=== PATIENT | male | born 1960 | race African-American/Black ===

== ENCOUNTER 2016-11-07 05:38 | Inpatient (IN) | payer OTHER ==
[~2016-11-07] VITALS: Ht 177.8 cm; Wt 71.4 kg
--- NOTE | ~2016-11-07 | WND ---
ADMIT: 11/07/2016 RM/LOC: 405 [facility] MR#: [id number] [address] [place], [place] [address] [place] [address] [place] [address] Wound Care Clinic SEX: M AGE: 56 : 1960 DATE OF VISIT: 11/09/2016 TIME IN: 1425 hours. TIME OUT: 1510 hours. REASON FOR VISIT: Wound VAC dressing change to the left foot. HISTORY OF PRESENT ILLNESS: This is a 56-year-old gentleman, who usually receives care in [place]. He is at the [facility] getting long-term antibiotics for recent left foot osteomyelitis. He started developing vomiting and syncope on 11/07/2016. He has on numerous significant diseases that includes diabetes mellitus, type 2, insulin dependent; hypertension; small CVA; chronic renal failure, on dialysis; osteomyelitis of the left foot with IV antibiotics. He was admitted to [facility] for further evaluation and cares. According to past records, his osteomyelitis of his left foot was polymicrobial growing out gram-negative rods as well as MRSA. He also had positive blood cultures. PAST MEDICAL HISTORY: Type 2 diabetes, on insulin; end-stage renal disease secondary to diabetes needing renal dialysis; hypertension; history of cholecystectomy; osteomyelitis of the left foot; history of stroke with small residual right upper extremity paresthesia; stroke in 2013. FAMILY HISTORY: Significant for father with diabetic issues as well as mother with diabetes. He lives in [place] with his mother; however, is currently residing at [facility] with the PA system, originally from [place]. ALLERGIES: No known medication allergies. CURRENT MEDICATIONS: 1. Lipitor. 2. PhosLo. 3. Plavix. 4. Xalatan. 5. Levemir. 6. NovoLog. 7. Heparin drip. 8. Nitroglycerin drip. 9. Sodium chloride. 10.Zosyn. P.r.n. medications include: 1. Glutose. 2. Maalox. 3. Surfak. 4. Tylenol. 5. Tylenol suppository. 6. Nitrostat. ADMIT: 11/07/2016 RM/LOC: 405 [facility] MR#: [id number] [address] [address] PHIL [address] [place] [address] Wound Care Clinic SEX: M AGE: 56 : 1960 7. Eucerin. 8. Adrenalin. 9. Benadryl. 10.D50. 11.Heparin. 12.Solu-Cortef. 13.Zofran. REVIEW OF SYSTEMS: He is examined in his hospital bed where he is on a pressure-relief mattress. He just completed hemodialysis. He is awake and alert; however, he does doze off at times. He denies any recent fever or chills. He does have some nausea. He denies any current cough, cold, or chest pain. No abdominal discomfort. Appetite is fair. He does have a throbbing sensation in his foot. He states it is aching. PHYSICAL EXAMINATION: VITAL SIGNS: Temperature 98.8, pulse 89, respirations 18, blood pressure 151/59, O2 sats on oxygen is 92%. EXTREMITIES: Focused exam to left lower extremity shows foot circumference is 21.5 cm, ankle is 22 cm, and calf 20 cm, malleolus is 25.5 cm. He has a superficial area on the dorsal surface of his foot that measures 6.5 cm x 4.8 cm. It appears to be healing. There is a pink base scant serous drainage noted. Posterior tibialis is 1+, dorsalis pedis is 2+. On the lateral left foot wrapping around to the dorsal surface, total ulceration measures 13.8 cm x 8 cm with a depth of 2.7 cm. From 7-2 o'clock, it undermines for 1.4 cm. There is some necrotic tissue noticed on the edges of the undermined tissue. There is bone exposed that is slightly dark in appearance, approximately 2 x 5 cm. However, there are other areas along the side of his foot that also shows exposed bone. On the plantar surface of his foot, there is a wound that measures 1.2 cm x 1.3 with a depth of 0.9 cm. It undermines from 10-3 o'clock for 1.6 cm. The plantar wound base is more pink. The lateral wound base is a mixture of necrotic tissue with pink tissue and bone exposure. A moderate amount of serosanguineous drainage in the wound VAC canister. Wound edges are macerated. ASSESSMENT: Left foot full-thickness bone level wound, status post surgical debridement due to osteomyelitis and amputation of 5th digit. TREATMENT PLAN: The old VAC dressing was removed assuring that all the wound ADMIT: 11/07/2016 RM/LOC: 405 [facility] MR#: [id number] [address] [address] [address] [id number] Wound Care Clinic SEX: M AGE: 56 : 1960 foam was removed. The wound was rinsed vigorously with normal saline and patted dry. Periwound area was protected with No-Sting Barrier wipe. Wound edges were protected with wound drape. One piece of Mepitel was placed in the base of the wound to protect the bone. One piece of black foam was placed in the base of the wound and wrapped to the plantar surface wound. The system was sealed and the VAC was reinstituted at -125 mmHg continuous. A Mepilex border was placed over the dorsal surface wound. An Vamsi wrap was then reapplied to his foot and ankle on the left side assuring that the VAC tubing was outside of the Vamsi. His feet were elevated on pillows. Wound Care will continue with VAC dressing changes on Monday, Monday, and Monday. Thank you for this referral. Claudia Mejia APRN/ eliane JOB #: [id number] CC: Clif Tuttle, Attending Physician Clif Tuttle, Family Physician
--- NOTE | ~2016-11-07 | ECH ---
Transthoracic Echocardiography Report (TTE) Demographics Patient Name PHIL IVY Date of Study 11/07/2016 Patient Number [id number] Visit Number [id number] Date of 1960 Room Number 401 Gender Male Number Age 56 year(s) Referring Parag Cain MD Investigative Writer Neha Castano [facility] Physician Elissa Dave MD Physician Interpreting maye Lares Career Advisor Physician MD Supervising Ordering Parag Cain MD, MD/P Physician Nurse Stress Sales Representative Door To Door Conclusions Summary Technically adequate exam. The estimated left ventricular ejection fraction is 65%. Mild left ventricular hypertrophy. Normal right ventricle structure and function. Mild tricuspid regurgitation by color Doppler. There is moderate pulmonary hypertension. The pulmonary pressure (RVSP) is 50 mmHg. No significant valvular regurgitant abnormalities. Procedure Type of Study TTE procedure:Echo Complete SF. Procedure Date Date: 11/07/2016 Start: 02:30 PM Technical Quality: Adequate visualization Indications:Shortness of breath and Fever. Additional Indications:septic pulmonary emboli, elevated BNP, Appropriate Use Criteria: 9 Height: 70 inches Weight: 163 pounds BSA: 1.91 m Rhythm: NSR HR: 77 bpm BP: 129/58 mmHg M-Mode/2D Measurements LV Diastolic Dimension: 4.95 cm LV Systolic Dimension: 3.12 cm LV Septum Diastolic: 0.72 cm LV PW Diastolic: 1.18 cm AO Root Dimension: 2.7 cm Cardiac Output: 6.77 l/min LA Dimension: 3.36 cm Cardiac Index: 3.54 l/min*m RV Diastolic Dimension: 3.29 cm LA volume index: 23 ml/m LVOT: 2.17 cm IVC Inspiration: 1.78 cm LVOT VTI: 23.8 cm LV Stroke volume: 87.98 ml RV Mid: 2 cm LV Stroke volume index: 46.06 ml/m TAPSE: 2.8 cm TDI-S': 18 cm/s Doppler Measurements AV Peak Velocity: 1.2 m/s MV Peak E-Wave: 0.76 m/s AV Peak Gradient: 5.76 mmHg MV Peak A-Wave: 0.55 m/s AV Mean Gradient: 3.61 mmHg MV E/A Ratio: 1.38 LVOT Peak Velocity: 1.21 m/s MV P1/2t: 46.1 msec AV Area (Continuity):3.38 cm MV Deceleration Time: 128.5 msec TR Velocity:3.25 m/s MV Area (PHT): 4.78 cm TR Gradient:42.28 mmHg PV Peak Velocity: 0.89 m/s Estimated RAP:8 mmHg PV Peak Gradient: 3.15 mmHg Estimated RVSP: 50 mmHg Estimated PASP: 50.28 mmHg RA Area: 18.32 cm Findings Left Ventricle The left ventricle is normal in size . Mild left ventricular hypertrophy. Diastolic assessment reveals normal relaxation. Right Ventricle Normal right ventricle structure and function. Left Atrium Normal left atrial size. Right Atrium Normal right atrial size. Prominent Chiari network seen in the right atrium. Mitral Valve Normal mitral valve structure and function. Trivial mitral regurgitation by color Doppler. Aortic Valve Normal aortic valve structure and function. There is no aortic regurgitation by color Doppler. Tricuspid Valve Normal tricuspid valve structure and function. Mild tricuspid regurgitation by color Doppler. There is moderate pulmonary hypertension. The pulmonary pressure (RVSP) is 50 mmHg. Pulmonic Valve Normal pulmonic valve structure and function. Pericardial Effusion No evidence of pericardial effusion. Miscellaneous Visualized portions of the aortic root and ascending aorta appear normal in size. Pleural Effusion No evidence of pleural effusion. Contractility Score LV regional wall motion:(0-Non visualized 1-Normal 2-Hypokinesis 3-Akinesis 4-Dyskinesis 5-Aneurysm) Signature
--- NOTE | 2016-11-07 18:34 | ER ---
ADMIT: 11/07/2016 RM/LOC: 401 [facility] MR#: [id number] [address] [address] RAFFI IVYWIN AMADOR [address] [place] [address] Emergency Room Report SEX: M AGE: 56 : 1960 DATE: 11/07/2016 ADDENDUM: A 56-year-old black male, coming over after having an episode of vomiting, and then we think syncope early this morning about 5 over at the [facility] skilled floor. I refer you to Dr. Mahajan's initial T-sheet. This patient has a number of significant diseases, these include diabetes, insulin dependent; hypertension; he has had a small CVA in the past; he has chronic renal failure and he is on dialysis at this time. The reason he is over in skilled care is that he developed an osteomyelitis of his left foot and has been receiving IV antibiotics over there. He has had a laparoscopic cholecystectomy, tonsillectomy, adenoidectomy, cataracts, AV shunt to left lower extremity, and his left fifth toe has been amputated as well in the past. He has kind of a chronic iron-deficiency anemia, probably secondary to his chronic renal disease with his hemoglobin of 8.2. He is from [place]. He is not a smoker at this time. Exam essentially was nothing acute. He does have a white count of 16.9, hemoglobin is 8.2. Glucose 202. His creatinine is 9.5. His potassium is normal. His lactate was 1.4 as well as his prolactin. He was never hypotensive with here just hypoxic. CT scan of the chest reveals some nonspecific lesions that could be mets, aspiration, or a septic emboli, but we did not know what is going on at this time. I spoke with Dr. Tuttle. We are going to admit the patient. He used to be hypoxic before and was not on oxygen. His blood gases on 5 to 6 L was pH of 7.3, pCO2 of 55, pO2 of 85, this is all new finding as well. So, at this time, he has acute onset hypoxia with unknown lesions of his chest by CT. He has been receiving antibiotics all along. He has had Flagyl as well as his other medication. I do not see that he has an acute source of infection that has been treated all along. This patient is not septic at this time. I spoke Dr. Tuttle, he will admit. CONDITION ON DISCHARGE: Serious, but stable. Brian De La Cruz MD/ modl JOB #: [id number] CC: Clif Tuttle MD, Attending Physician Clif Tuttle MD, Family Physician
--- NOTE | 2016-11-08 16:07 | HP ---
ADMIT: 11/07/2016 RM/LOC: 401 [facility] MR#: [id number] 2620 [facility] [address] [place] [address] [place] PHIL ENGL[place] [address] [place] [address] History and Physical SEX: M AGE: 56 : 1960 DATE OF SERVICE: CHIEF COMPLAINT: Weakness and shortness of breath. HISTORY OF PRESENT ILLNESS: The patient is a 56-year-old gentleman, normally receives all of his care down in [place], who is out here at the [facility] getting long-term antibiotics for recent left foot osteomyelitis. The patient reported just increasing weakness and fatigue this morning. No real cough. Had a fever to 100.3 reportedly. No nausea. No vomiting. No pain. He has been about two and half weeks in [place] at [facility] with osteomyelitis, polymicrobial, growing out Gram-negative rods as well as MRSA. He also had positive blood cultures. He now has been out here in [place] getting IV antibiotics for this osteomyelitis for about two weeks. He has not ever had oxygen dependence in the past. Really does not have any known lung disease. PAST MEDICAL HISTORY: 1. Type 2 diabetes, on insulin. 2. End-stage renal disease secondary to diabetes. 3. Hypertension. 4. History of cholecystectomy. 5. Osteomyelitis, left foot. 6. History of stroke with some residual right upper extremity paresthesia reported. Stroke was in 2014. FAMILY HISTORY: Significant for father with diabetic issues as well as mother. Father . SOCIAL HISTORY: He lives at home with his mother in [place] currently. Originally otherwise was from [place]. Receives his care through the [facility], Dr. Clarke being his primary care provider normally. MEDICATIONS: Please see list for full details. He is on: 1. Plavix. 2. Amlodipine. 3. Insulin NovoLog 2 units per 50 above 150 with meals sliding scale. 4. Atorvastatin 40 mg a day. 5. Metoprolol 75 mg q.12 hours. 6. Flagyl 500 mg p.o. q.8 for his foot infection. 7. Lantus 14 units a day. 8. Latanoprost solution for his eyes. 9. Tylenol p.r.n. REVIEW OF SYSTEMS: As per HPI. Otherwise, completely reviewed and negative. PHYSICAL EXAMINATION: VITAL SIGNS: T-max is 100.3, heart rate is 78. He is on 6 L O2, saturating greater than 93% now. Respiratory rate is 12. GENERAL: He is alert and oriented x3. No acute distress. Pleasant. Resting comfortably. Sleeping, but easily awakens. ADMIT: 11/07/2016 RM/LOC: 401 [facility] MR#: [id number] [address] [address] [place] [address] History and Physical SEX: M AGE: 56 : 1960 HEENT: Normocephalic, atraumatic. Pupils are equal bilaterally. No icterus. Dry mucous membranes. NECK: No lymphadenopathy. Soft and supple. Trachea midline. LUNGS: Coarse bilaterally with rhonchi expiratory bilaterally. No rales noted. Symmetric thoracic excursion. HEART: Regular rate and rhythm. No murmurs, rubs, or gallops. Distant heart sounds. ABDOMEN: Soft, nontender, nondistended. Bowel sounds present. EXTREMITIES: No cyanosis or clubbing. Very faint edema, bilateral. Muscle wasting in bilateral lower extremities. MUSCULOSKELETAL: With 5/5 strength in all four extremities. NEUROLOGICAL: No focal deficits noted. Cranial nerves II through XII grossly intact. SKIN: Very dry. No rashes noted. PSYCHIATRIC: Very normal affect and mood. LABORATORY AND X-RAY DATA: Creatinine 9.5, Mag 2.8. AST and ALT within normal limits. ABG showed a pH of 7.33, pCO2 of 52, PO2 of 79. White count 16.9, hemoglobin 8.2, platelets 372. Lactic acid 1.4. Procalcitonin is 0.9. CRP 5.5. Chest CT scan showed a bilateral ground-glass and nodular opacities, dispersed throughout the lung, infectious, inflammatory process versus septic emboli, metastasis cannot be excluded as well as hepatic 1.8 cm peripheral enhancing mass, indeterminate. EKG is reviewed, shows no acute abnormalities. Sinus. ASSESSMENT: 1. Fever. 2. Pneumonia, possible embolic Gram-negative ze versus possible methicillin- resistant Staphylococcus aureus. 3. End-stage renal disease, on dialysis. 4. Type 2 diabetes, on insulin. 5. Complicated osteomyelitis of left foot. 6. Liver mass. 7. Hypertension. ADMIT: 11/07/2016 RM/LOC: 401 [facility] MR#: [id number] [address] [address] [place] [id number] History and Physical SEX: M AGE: 56 : 1960 PLAN: At this point in time, we will put him on IV antibiotics, vancomycin and Zosyn that are different than the ceftaroline and Flagyl he is getting. We will get a TTE as well as an ultrasound. We will try to rule out for endocarditis. May need a GREGORIO. We will get blood cultures from his dialysis line, which have not been obtained yet. We will evaluate this hepatic mass further with ultrasound initially and then need to get a CT scan. We have consulted Nephrology and they will be by to see him for his dialysis needs today. Continue insulin. We will see how he does. We will get Wound Care to see him. He gets all of his care normally through the [facility] and we will transfer him there when they finally have a bed available. They do not have a bed available today. Clif Tuttle MD/ eliane JOB #: [id number] CC: Clif Tuttle, Attending Physician Clif Tuttle, Family Physician
--- NOTE | 2016-11-10 08:14 | CO ---
ADMIT: 11/07/2016 RM/LOC: 313 [facility] MR#: [id number] [facility]#: [id number] [address] [address] [address]IL ERNA[address] [place] [place] [address] Consultation SEX: M AGE: 56 : 1960 DATE OF CONSULTATION: 11/08/2016 ATTENDING PHYSICIAN: Clif Tuttle CONSULTING PHYSICIAN: Hilario Mosley MD, [facility] REASON FOR REFERRAL: Hypoxia. HISTORY OF PRESENT ILLNESS: Mr. Ernandez is a 56-year-old male, who was transferred to the ICU last night for increasing hypoxia. The patient has end- stage renal disease who was admitted on 11/07/2016, for fever and chest x-ray concerning for pneumonia. The patient denies any shortness of breath, he is coughing productive yellow sputum, before that was brown. He denies any hemoptysis. He denies any shortness of breath. He states that the reason he came over here was for nausea. He did have a fever last night of 101.3 and was placed on vancomycin and Zosyn. He quit smoking 15 years ago, he is very vague on how much he actually smoked, I could not pin him down to a number. He denies any chest pain. He denies any hemoptysis. He denies any TB or asbestos exposure. He denies any sinus problems or epistaxis. He states he snores occasionally. He has no excessive daytime sleepiness, no witnessed apneic episodes. PAST MEDICAL HISTORY: CURRENT MEDICATIONS: 1. Lipitor. 2. PhosLo. 3. Plavix. 4. Dilantin. 5. Levemir. 6. Zosyn. 7. He did receive a dose of vancomycin. ALLERGIES: HE HAS NO KNOWN DRUG ALLERGIES. PAST MEDICAL HISTORY: Remarkable for osteomyelitis, anemia of chronic disease, and renal failure. He has had a CVA with right arm weakness, renal osteodystrophy. FAMILY HISTORY AND SOCIAL HISTORY: He resides at the [facility]. There is no inheritable lung disease in the family. REVIEW OF SYSTEMS: GENERAL: He denies any fevers, chills, night sweats. He has had some weakness. EYES: He has no visual problems. ENT: He has no hearing problems. No epistaxis. CARDIAC and PULMONARY: Other than above, is negative. He denies any chest pain, any orthopnea or PND. GI: He does have acid reflux frequently. No nausea, vomiting, or diarrhea. No ADMIT: 11/07/2016 RM/LOC: 313 [facility] MR#: [id number] [address] [address] [place] [address] [place] [id number] Consultation SEX: M AGE: 56 : 1960 abdominal pain. : No flank pain. MUSCULOSKELETAL: No arthralgias or arthritis. HEMATOPOIETIC: No easy bruising. SKIN: No acute rashes. PHYSICAL EXAM: VITAL SIGNS: Temperature 98.6, pulse 81, respirations 20, blood pressure 145/53. T-max was 101.3. GENERAL: He is awake, alert, oriented, in no apparent distress. Breathing comfortably on 2 L nasal cannula. HEENT: Sclerae nonicteric. Throat is not erythematous. NECK: Supple. Trachea is midline. No cervical or supraclavicular adenopathy. LUNGS: Clear to auscultation. CV: Regular rate without murmurs, rubs, or gallops. ABDOMEN: Active bowel sounds. Soft, nontender. EXTREMITIES: No cyanosis, clubbing, edema. SKIN: Without acute lesions. NEURO: He is moving all extremities. LABORATORY DATA: ABGs today with pH was 7.39, pCO2 of 42, PO2 of 109. Last p.m., his blood gases were pH 7.33, pCO2 of 52, pO2 of 79, on a simple mask. Other laboratory sodium is 138, potassium is 5.0, chloride 103, CO2 of 24, BUN 69, creatinine is 10.7, and albumin 2.1. White count 21.3, hemoglobin 7.8, platelets are 353. Chest x-ray shows a right perihilar infiltrate. Sputum culture on the was not received from the ER. Blood cultures so far been negative, preliminary. IMPRESSION: 1. Hypoxia. 2. Pneumonia. 3. Hypercarbic respiratory failure, improved. ADMIT: 11/07/2016 RM/LOC: 313 [facility] MR#: [id number] [address] [address] [place] [address] [place] [address] Consultation SEX: M AGE: 56 : 1960 4. End-stage renal disease. RECOMMENDATIONS AND DISCUSSION: It appears the patient has an acute pneumonia. Unfortunately, we do not have a sputum that was obtained to help de- escalate antibiotics. I would continue vancomycin for the time being, await cultures to come back before de-escalating. I would recommend continuing his oxygen. His pCO2 and pH are normalized today, would continue to monitor. Initially with his hypercarbia, I considered obstructive sleep apnea or hypoventilation, but given that normalized today I think this is unlikely as the cause. We will monitor as per clinical improvement. Thank you for the consultation. Hilario Mosley MD, FCCP/ modl JOB #: [id number] CC: Clif Tuttle, Attending Physician Clif Tuttle, Family Physician
--- NOTE | 2016-11-11 16:04 | CO ---
ADMIT: 11/07/2016 RM/LOC: 313 [facility] MR#: [id number] [address] [address] [address] [place] [address] Consultation SEX: M AGE: 56 : 1960 DATE OF CONSULTATION: 11/07/2016 ATTENDING PHYSICIAN: Clif Tuttle CONSULTING PHYSICIAN: Travis Bowers MD CHIEF COMPLAINT: End-stage renal disease, on hemodialysis. HISTORY OF PRESENT ILLNESS: The patient is a 56-year-old gentleman, who presents to [facility] as a transfer from the [place]. He reports having a history of renal disease for which he has been on hemodialysis since May of last year. He has had a fistula attempted in his left forearm that did not work. About a couple weeks ago, he had another fistula placed in his left upper arm. He also reports a recent hospitalization in [place] for a left foot ulcer. This continues to be a problem for him at this time. He was sent over here from the [place]. He had a fever, and his imaging studies are concerning for a pneumonia. He reports a cough that was productive. Denies any chest pain. He does not make much urine. His appetite is poor. He denies any dizziness or lightheadedness. His last dialysis was this past Monday. REVIEW OF SYSTEMS: Complete review of systems is negative in detail except as mentioned in history of present illness above. PAST MEDICAL HISTORY: Hypertension, type 2 diabetes mellitus, end-stage renal disease on hemodialysis, history of CVA with right arm weakness, anemia and chronic kidney disease, renal osteodystrophy. ALLERGIES: NO KNOWN DRUG ALLERGIES. MEDICATIONS: Reviewed and addressed in the chart next. SOCIAL HISTORY: He lives at the [facility]. No ongoing tobacco, alcohol, or recreational drug use. FAMILY HISTORY: Reports a history of diabetes as well as kidney problems. PHYSICAL EXAMINATION: VITAL SIGNS: Temperature 98.1 Fahrenheit, pulse 80, and blood pressure 129/58. GENERAL: He appears ill. HEAD: Head is nontraumatic and normocephalic. Pale conjunctivae. Dry mucosa. NECK: Supple without any JVD. CHEST: Decreased breath sounds bilaterally. It is clear to auscultation. CVS: Regular rhythm. S1 and S2. No rubs, murmurs, or gallops. ABDOMEN: Soft, nontender. EXTREMITIES: No edema. ADMIT: 11/07/2016 RM/LOC: 313 [facility] MR#: [id number] [address] [address] [address] [place] [id number] Consultation SEX: M AGE: 56 : 1960 SKIN: No rash or nodules. NEUROLOGIC: Alert and oriented x3. He is able to move all his extremities. PSYCHIATRIC: Affect and memory within normal limits. Access, a failed fistula in his left forearm. A fistula in his left upper arm with fistula/graft in his left upper arm, which has poor thrill and bruit. He has a tunnel dialysis catheter in his right IJ. LABORATORY DATA: Reviewed. His BMP showed a sodium 139, potassium 4.9, creatinine 9.5, BUN of 60. His hemoglobin was 8.2, calcium 8.5, and phosphorus 4.1. He had a CT scan of the chest, which showed bilateral nodular ground-glass opacities. He also had a hepatic mass. ASSESSMENT/PLAN: 1. End-stage renal disease, on hemodialysis - there is no emergent indication for renal replacement therapy at this time. He is getting antibiotics now for a presumed pneumonia. 2. Hypertension/volume - blood pressure is okay, and he appears euvolemic to hypovolemic on exam. 3. Anemia on chronic kidney disease - I will obtain his records and dose LISSETTE as per his outpatient orders. 4. Renal osteodystrophy - continue PhosLo 3 capsules t.i.d. with meals. Serum phosphorus is acceptable. Thank you for this consultation. Please do not hesitate to contact with any questions. Travis Bowers MD/ eliane JOB #: [id number] CC: Clif Tuttle, Attending Physician Clif Tuttle, Family Physician
--- NOTE | 2016-11-12 07:15 | DS ---
ADMIT: 11/07/2016 RM/LOC: 405 [facility] MR#: [id number] [facility]#: [id number] [address] [address] [place] [address] [place] [address] Discharge Summary SEX: M AGE: 56 : 1960 ADMISSION DATE: 11/07/2016 DISCHARGE DATE: 11/11/2016 CONSULTATIONS: 1. Nephrology, Dr. Bowers. 2. Pulmonology, Dr. Mosley. FINAL DIAGNOSES: 1. Pneumonia, likely gram-negative ze. 2. Diabetes type 2, on insulin. 3. End-stage renal disease, on dialysis. 4. Acute respiratory failure, hypoxic requiring noninvasive positive pressure ventilation. 5. Liver mass, likely hemangioma. 6. Osteomyelitis. REASON FOR ADMISSION: The patient is a 56-year-old gentleman, was up to the [facility] here. Getting treatment for his osteomyelitis. Had increasing shortness of breath, oxygen requirement. Admitted through the ER upon evaluation there. HOSPITAL COURSE: The patient was initially admitted to the floor. Had on CT scan questionable embolic type pneumonia pattern. Placed on broad-spectrum antibiotics. His oxygen status worsened overnight as did his volume status after volume resuscitation. He ultimately required some BiPAP to bridge him over to getting dialysis. After he got dialysis, he felt much improved from a respiratory standpoint. Fevers defervesced during hospitalization. Was placed on vancomycin and Zosyn. This was ultimately tailored back to Zosyn and he did well. He felt much improved at time of discharge. Eating well. In regards to his osteomyelitis, he was seen by wound care. Seemed to be improving as expectedly. His diabetes was controlled and he had decreased insulin while he was not eating as well initially when feeling ill but improved. The patient otherwise had a small liver mass versus hemangioma on ADMIT: 11/07/2016 RM/LOC: 405 [facility] MR#: [id number] [address] [facility] [address] [place] [id number] [address] [place] [address] Discharge Summary SEX: M AGE: 56 : [address] scan[address] Repeat ultrasound did not characterize that much more likely hemangioma. We will defer further workup as an outpatient. DISCHARGE INSTRUCTIONS: We will discharge to the [facility]. Continue his home medications he was on there. He will be on ceftaroline and Flagyl per prior plan for his osteomyelitis. Should cover for his pneumonia. Otherwise please see discharge MAR for full details. Clif Tuttle MD/ vdg JOB #: [id number] CC: Clif Tuttle MD, Attending Physician Clif Tuttle MD, Family Physician MD Estuardo Salamanca MD [facility]
[2016-11-13] MEDS ORDERED: NORVASC5 MG PO (13:04)
[2016-11-13] MEDS ORDERED: THERA1 EACH PO (13:04)
[2016-11-13] MEDS ORDERED: VITAMIN D-32000 UNI1 PO (13:05)
[2016-11-13] MEDS ORDERED: LASIX DPS40 MG PO (13:05)
[2016-11-13] MEDS ORDERED: LOPRESSOR DPS50 MG PO (13:05)
[2016-11-13] MEDS ORDERED: LIPITOR40 MG PO (13:05)
[2016-11-13] MEDS ORDERED: PLAVIX75 MG PO (13:06)
[2016-11-13] MEDS ORDERED: FLAGYL-DPS500 MG PO (13:06)
[2016-11-13] MEDS ORDERED: XALATAN2.5 ML OU (13:06)
[2016-11-13] MEDS ORDERED: EUCERIN CREME120 GM TP (13:06)
[2016-11-13] MEDS ORDERED: TYLENOL DPS325 MG PO ×2 (13:06→13:08)
[2016-11-13] MEDS ORDERED: PHOS-LO667 MG PO (13:07)
[2016-11-13] MEDS ORDERED: LANTUS100 UNITS/ SQ (13:07)
[2016-11-13] MEDS ORDERED: CATAPRES-DPS0.1 MG PO (13:07)
[2016-11-13] MEDS ORDERED: NOVOLOG100 UNIT/2 SQ (13:07)
== END 2016-11-11 16:19 | DRG 177 ==
LOC: ER 05:38 → 4PCU 11:00 → 3ICU 11:00 → 4PCU 11-09 19:21
PROVIDERS: ADMIT Internal Medicine
PROC: 5A1D60Z (ICD-10-PCS; principal; 2016-11-08)
DX: J15.6 Pneumonia due to other Gram-negative bacteria (principal); J96.01 Acute respiratory failure with hypoxia; I12.0 Hypertensive chronic kidney disease with stage 5 chronic kidney disease or end stage renal disease; N18.6 End stage renal disease; E11.22 Type 2 diabetes mellitus with diabetic chronic kidney disease; M86.9 Osteomyelitis, unspecified; J18.9 Pneumonia, unspecified organism; I69.331 Monoplegia of upper limb following cerebral infarction affecting right dominant side; D18.03 Hemangioma of intra-abdominal structures; E86.1 Hypovolemia; D63.1 Anemia in chronic kidney disease; E11.69 Type 2 diabetes mellitus with other specified complication; N25.0 Renal osteodystrophy; Z99.2 Dependence on renal dialysis; Z79.4 Long term (current) use of insulin; Z87.891 Personal history of nicotine dependence

== ENCOUNTER 2017-01-14 12:09 | Emergency (ER) | payer OTHER, MEDICARE ==
[~2017-01-14 12:09] MED LIST: CATAPRES-DPS0.1 MG PO; EUCERIN CREME120 GM TP; FLAGYL-DPS500 MG PO; LANTUS100 UNITS/ SQ; LASIX DPS40 MG PO; LIPITOR40 MG PO; LOPRESSOR DPS50 MG PO; NORVASC5 MG PO; NOVOLOG100 UNIT/2 SQ; PHOS-LO667 MG PO; PLAVIX75 MG PO; THERA1 EACH PO; TYLENOL DPS325 MG PO; VITAMIN D-32000 UNI1 PO; XALATAN2.5 ML OU
--- NOTE | 2017-01-18 07:41 | ER ---
ADMIT: 01/14/2017 RM/LOC: ER [facility] MR#: [id number] [address] [address] [address] [place] [address] Emergency Room Report SEX: M AGE: 56 : 1960 DATE: 01/14/2017 ADDENDUM: CHIEF COMPLAINT: Right arm weakness. HISTORY OF PRESENT ILLNESS: This is a 56-year-old male, who has been in rehab over at the [facility] for post TIA. He said he started lifting weights with his right arm, it became weak. He set the weight down, 5 minutes later it resolved. He lifted the weight again, waited a minute, his arm became weak so he waited 5 minutes more, it resolved. He did the same thing and again it resolved on its own. The nurse was concerned, so came to the ER. CT of his head is negative for any acute findings. 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 CMP, his potassium slightly elevated at 5.4, he did do dialysis yesterday. Sodium, chloride, and bicarb were normal. His BUN is 59, glucose is 149, creatinine is 6.2. EKG shows sinus rhythm, over-read by Dr. Patrick. His CBC is normal except for white count of 11.5. Again the right arm weakness has resolved. I told him I do not know if this is just from lifting weight specifically. He is already on Plavix, told him to continue that and followup with the [place] if weakness returns. CLINICAL IMPRESSION: Right arm weakness, resolved prior to ER visit. BECAC Zamudio / Minesh Patrick MD / eliane JOB #: [id number] CC: Minesh Patrick MD, Attending Physician [facility] Physician, Family Physician
== END 2017-01-14 13:50 | disposition home or self-care (01) ==
LOC: ER 12:09
DX: R53.1 Weakness (principal); I10 Essential (primary) hypertension; E11.9 Type 2 diabetes mellitus without complications; Z86.73 Personal history of transient ischemic attack (TIA), and cerebral infarction without residual deficits; Z90.49 Acquired absence of other specified parts of digestive tract; Z99.2 Dependence on renal dialysis; Z79.4 Long term (current) use of insulin; Z79.01 Long term (current) use of anticoagulants; Z79.899 Other long term (current) drug therapy